=== PATIENT | female | born 1990 | race Hispanic/Latino ===

== ENCOUNTER 2017-04-26 14:37 | Emergency (ER) | payer SELFPAY ==
[2017-04-26 15:16] LABS: #Basophils 0.1 thou/uL (0.0-0.2); #Lymphocytes 1.7 thou/uL (1.20-3.40); #Monocytes 0.4 thou/uL (0.11-0.59); #Neutrophils 5.5 thou/uL (1.40-6.50); %Basophils 0.8 % (0.0-1.0); %Eosinophils 0.6 % (0.0-10.0); %Lymphocytes 21.9 % (21.0-51.0); %Monocytes 5.2 % (0.0-10.0); %Neutrophils 71.5 % (42.0-75.0); Hemoglobin 9.7 g/dL (12.0-16.0); Mean Corpuscular HGB CONC 32.2 g/dL (32.0-36.0); Mean Platelet Volume 8.3 fL (7.4-10.4); Platelet Count 313 thou/uL (130-400); RBC Distribution Width 13.3 % (11.5-14.5); Red Blood Cell (RBC) Count 3.59 mill/uL (4.20-5.40); White Blood Cell (WBC) Count 7.7 thou/uL (4.8-10.8)
[2017-04-26 15:35] LABS: Bilirubin Small (Negative); Blood, Urine Negative (Negative); Clarity CLOUDY (Clear); Glucose, Urine (Dipstick) Negative (Negative); Leukocyte Moderate (Negative); Nitrite Negative (Negative); Protein, Urine (Dipstick) 30 mg/dL (Neg-Trace); Specific Gravity, Urine 1.028 (1.002-1.036)
[2017-04-26 15:37] LABS: Pregnancy Test - Urine (BHCG) POSITIVE (Negative); Pregu Control Background? CLEAR/WHITE (CLR/WHITE); Pregu Control Bar Appear? YES (CONTROL BAR); Specific Gravity 1.028 (1.002-1.036)
[2017-04-26 15:38] LABS: Bacteria/HPF 1+ HPF (None Seen); Pathc Cast-AUWi Flag 1.08 (0-2.49); Squamous Epithelial 21-50 HPF (0-3)
[2017-04-26 15:39] LABS: ALT (SGPT) 8 U/L (8-55); AST (SGOT) 15 U/L (5-34); Albumin 3.9 g/dL (3.5-5.0); Alkaline Phosphatase 42 U/L (40-150); Anion Gap 12 mmol/L (10-20); BUN (Urea Nitrogen) 8 mg/dL (7.0-18.7); Bilirubin, Total 0.5 mg/dL (0.2-1.2); Calc. Creatinine Clearance 0 mL/min (70-130); Calcium 9.3 mg/dL (7.8-10.44); Carbon Dioxide 21 mmol/L (22-29); Chloride 104 mmol/L (98-107); Estimated GFR-MDRD Greater than 90; Globulin 3.1 g/dL (2.4-3.5); Glucose 90 mg/dL (70-105); Potassium 4.1 mmol/L (3.5-5.1); Sodium 133 mmol/L (136-145)
[2017-04-26 15:58] LABS: RBC/HPF None Seen HPF (0-3)
--- NOTE | 2017-04-26 16:58 | ULT ---
FIRST TRIMESTER OBSTETRICAL ULTRASOUND: 04/26/17 INDICATION: Pelvic pain with a history of . FINDINGS: The uterus measures 10.6 x 11 x 10 cm. There is a single live intrauterine gestation with cardiac act ivity noted at 163 beats per minute. No william gestational sac hemorrhage is demonstrated. The average gestational age based on biometrics is 13 weeks and 1 day. Estimated due date is . The right ovary measures 2.4 x 2.1 x 1.4 cm. The left ovary measures 2.9 x 2.9 x 1.5 cm. There is nor mal flow to both ovaries. No free fluid is evident. IMPRESSION: Single live intrauterine gestation. POS: [facility]
== END 2017-04-26 17:31 | disposition home or self-care (01) ==
LOC: ERS 14:37
DX: O23.41 Unspecified infection of urinary tract in pregnancy, first trimester (principal); O99.011 Anemia complicating pregnancy, first trimester; Z3A.13 13 weeks gestation of pregnancy
CPT/HCPCS: 36415; 76856; 80053; 81003; 81015; 81025; 84702; 85025; 86900; 86901; 93005; 96360; 96361